=== PATIENT | female | born 1980 | race Caucasian/White ===

== ENCOUNTER 2016-07-08 05:05 | Emergency (ER) | payer OTHER ==
[~2016-07-08] VITALS: Ht 157.5 cm; Wt 82.0 kg
[~2016-07-08 05:05] MED LIST: DOCUSATE SODIU100 MG PO; ENDOCET 5-3251 EACH PO; FLEXERIL10 MG PO; IBUPROFEN800 MG PO; TRAMADOL HCL50 MG PO
[2016-07-08 05:39] LABS: CHLORIDE 106 mEq/L (99-109); POTASSIUM 3.7 mEq/L (3.7-5.4); SODIUM 139 mEq/L (136-147)
[2016-07-08 05:42] LABS: GLUCOSE 94 mg/dL (70-99); HEMATOCRIT 39.8 % (36.0-46.0); MCH 31.5 PG (29.0-34.0); MCHC 33.9 G/DL (30.0-36.0); MEAN PLAT.VOLUME 9.4 uM^3 (9.5-12.4); PLATELET COUNT 306 K/uL (156-360); RBC DIS.WIDTH-CV 11.9 % (11.8-14.6); RBC DIS.WIDTH-SD 40.4 % (39-53); RED BLOOD COUNT 4.28 M/uL (3.80-5.20); WHITE BLOOD COUNT 4.2 K/uL (4.1-10.2)
[2016-07-08 05:43] LABS: ANION GAP 9 MEQ/L (2-14)
[2016-07-08 05:44] LABS: TOTAL BILIRUBIN 0.8 mg/dL (0.0-1.0)
[2016-07-08 05:45] LABS: ALKALINE PHOSPHATASE 52 IU/L (3-129)
[2016-07-08 05:46] LABS: GFR ESTIMATE (CALCULATED) > 59 mL/min/
[2016-07-08 05:47] LABS: DIRECT BILIRUBIN 0.2 mg/dL (0.0-0.3); UREA NITROGEN (BUN) 7 mg/dL (9-23)
[2016-07-08 05:49] LABS: LIPASE 26 U/L (1.0-51.0)
[2016-07-08 05:57] LABS: QUANTITATIVE HCG < 4.0 MIU/ML
[2016-07-08 07:21] LABS: ADD MIUA? NO; BILIRUBIN NEGATIVE; BLOOD NEGATIVE; COLOR COLORLESS ((YELLOW)); GLUCOSE (STRIP) NEGATIVE; KETONES NEGATIVE; LEUKOCYTES NEGATIVE; NITRITE NEGATIVE; PROTEIN (STRIP) NEGATIVE; SPECIFIC GRAVITY 1.003 (1.000-1.030); UCUL ADDED? NO; UROBILINOGEN 0.2 MG/DL (0.2-1.0)
[2016-07-08] MEDS ORDERED: TYLENOL WITH C1 EACH PO (07:46)
[2016-07-08 08:07] VITALS: BP 111/70
== END 2016-07-08 08:09 | disposition home or self-care (01) ==
LOC: EME 05:05
PROVIDERS: Emergency Medicine
DX: K80.20 Calculus of gallbladder without cholecystitis without obstruction (principal); Z87.891 Personal history of nicotine dependence
CPT/HCPCS: 74176; 80048; 80076; 81003; 83690; 84702; 85027; 99281; 99285; J2270; J2405; J7030

== ENCOUNTER 2016-07-22 06:58 | Day surgery (SDC) | payer OTHER ==
[~2016-07-22] VITALS: Ht 157.5 cm; Wt 82.1 kg
[~2016-07-22 06:58] MED LIST changes: +MIRALAX255 GM PO; +TYLENOL WITH C1 EACH PO
[2016-07-22 07:10] VITALS: BP 103/54
[2016-07-22 07:56] VITALS: BP 103/54
[2016-07-22] MEDS ORDERED: NORCO 5/3251 TABLET PO (09:24)
[2016-07-22 11:19] VITALS: BP 120/68
[2016-07-22 12:23] VITALS: BP 126/71
[2016-07-22 13:17] VITALS: BP 115/62
== END 2016-07-22 13:25 | disposition home or self-care (01) ==
LOC: SDC
PROC: 0FT44ZZ Resection of Gallbladder, Percutaneous Endoscopic Approach (ICD-10-PCS; principal; 2016-07-22)
DX: K80.10 Calculus of gallbladder with chronic cholecystitis without obstruction (principal); N30.10 Interstitial cystitis (chronic) without hematuria; K21.9 Gastro-esophageal reflux disease without esophagitis; K58.9 Irritable bowel syndrome, unspecified; Z68.34 Body mass index [BMI] 34.0-34.9, adult; Z87.891 Personal history of nicotine dependence; Z88.8 Allergy status to other drugs, medicaments and biological substances
CPT/HCPCS: 88304; J0131; J0690; J1100; J1170; J1885; J2250; J2405; J2710; J3010